=== PATIENT | female | born 1965 | race Caucasian/White ===

== ENCOUNTER → 2017-03-08 | Day surgery (SDC) | payer OTHER ==
[~2017-03-08] VITALS: Ht 165.1 cm; Wt 82.6 kg
== END | disposition home or self-care (01) ==
LOC: FAS 10:07
DX: Z12.11 Encounter for screening for malignant neoplasm of colon (principal); D12.8 Benign neoplasm of rectum; N84.0 Polyp of corpus uteri; E78.00 Pure hypercholesterolemia, unspecified; Z88.0 Allergy status to penicillin; Z79.899 Other long term (current) drug therapy; Z80.0 Family history of malignant neoplasm of digestive organs
CPT/HCPCS: 84703; 88305; J1100; J1170; J1885; J2270; J2405; J2704; J2710; J3010